=== PATIENT | male | born 1965 | race Caucasian/White ===

== ENCOUNTER 2019-01-02 06:29 | Inpatient (IN) ==
[2019-01-02] MEDS ORDERED: Sodium Chloride 0.9% 1,000 ML PRIMARY IV ONE (06:59)
[2019-01-02 07:08] LABS: Hematocrit [HCT] 41.5 % (42.0-52.0); Hemoglobin [HGB] 13.8 g/dL (14.0-18.0); MEAN CORPUSCULAR HEMOGLOBIN 27.9 PG (27-31); MEAN CORPUSCULAR HGB CONC 33.3 g/dL (33-37); MEAN CORPUSCULAR VOLUME 83.8 FL (80-90); RED BLOOD COUNT 4.95 10^6/uL (4.70-6.10)
[2019-01-02 07:18] LABS: BLOOD UREA NITROGEN 20 mg/dL (7-22); BUN/CREATININE RATIO 18.18 (6-20); SERUM ALBUMIN 4.1 g/dL (3.5-4.8)
[2019-01-02 07:38] LABS: PLATELET MORPHOLOGY COMMENT NORMAL MORPHOLOGY (NORM); RBC MORPHOLOGY COMMENT NORMAL MORPHOLOGY (NORM); WBC MORPHOLOGY COMMENT NORMAL MORPHOLOGY (NORM)
[2019-01-02 07:39] LABS: BAND NEUTROPHILS % 0 % (0-10); BASOPHILS % (MANUAL) 4 % (0-1); EOSINOPHILS % (MANUAL) 3 % (0-8); MONOCYTES % (MANUAL) 8 % (0-12); NEUTROPHILS % (MANUAL) 59 % (50-80)
--- NOTE | 2019-01-02 08:05 | PDOC ---
Lower Extremity Problem HPI - General Chief Complaint: Lower Extremity Problem/Injury Stated Complaint: LEFT FOOT RECHECK Date Seen by Provider: 01/02/19 Time Seen by Provider: 06:40 Source: POSITIVE: Patient, Old records Exam Limitations: POSITIVE: No limitations Nurse's Notes Reviewed & Considered: Yes - History of Present Illness Initial Comments: The patient is a 53-year-old male. Patient was seen in the emergency room [address] Fairchild with a diabetic foot ulcer, plantar and medial aspect of the left great toe. When seen in the emergency room at that time he was noted to have 2 diabetic foot ulcers of the left great toe, plantar and medial aspect. He had some redness and swelling of the left great toe. X-ray of the left great toe was taken and blood and wound cultures were taken. Patient was given a dose of intravenous antibiotics and was then discharged on Keflex, twice daily. He has a 10-12 year history of insulin-dependent type II diabetes mellitus. He has prominent diabetic neuropathy and states his sensation in his feet is a very reduced. No fevers or chills. No head chest or abdominal pain. Patient states that in the preceding 48 hours his redness and swelling has a descended from the great toe and now includes the dorsum of the left foot and the medial aspect of his left lower leg. No known fevers or chills. Patient takes Lantus 70 units daily as well as metformin 1000 mg twice daily. 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) Location at Time of Onset: REPORTS: Work Quality: REPORTS: Other (Patient denies any pain; sensation to his feet is markedly diminished due to diabetic neuropathy.) Modifying Factors: DENIES: Nothing Exacerbates, Walking, Movement, Rest, Ice, Nothing Relieves, Other Associated Symptoms: DENIES: Chest Pain, Shortness of Breath, Rapid Heart Rate, Fainting, Other Similar Symptoms Previously: No Recent Care Received: REPORTS: Recently Seen, Treated by MD (As above) Any Prior Injuries Related to Current Complaint?: No - Patient Home Medications Home Medications: Home Medications Gabapentin 900 mg PO TID 12/31/18 Insulin Glargine,Hum.rec.anlog [Lantus] 70 unit SQ DAILY 12/31/18 Lisinopril 5 mg PO DAILY 12/31/18 Ropinirole HCl [Requip] 1 mg PO DAILY 12/31/18 metFORMIN Tab [Glucophage Tab] 1,000 mg PO BID 12/31/18 Cephalexin [Keflex] 1,000 mg PO Q8H 01/02/19 - Patient Allergies Allergies/Adverse Reactions: Allergies Allergy/AdvReac Type Severity Reaction Status Date / Time Sulfa (Sulfonamide Allergy Hives Verified 01/02/19 06:31 Antibiotics) Past Medical History - heen HEENT History: Denies History Cardiovascular History: Hypertension Respiratory History: Denies History Gastrointestinal History: Denies History Genitourinary History: Denies History Endocrine History: Type 2 Diabetes (oral), Type 2 Diabetes (insulin) Musculoskeletal History: Back Pain Neurological History: Denies History Blood Disorders: Denies History Psychiatric History: Denies History Male Reproductive History: Denies History Cancer History: Denies History In Past Year Been Physically Harmed or Verbally Threatened: No History of MDRO: No Tobacco Use: Former Smoker In the Past 12 Months, Have Used or Abuse Any Substance: None Previous Surgical History: Yes Type / Date of Surgery: dixie tissue to lt eardrum, skin graft Anesthesia Reactions: No Malignant Hyperthermia: No Significant Family History: No pertinent family hx Past Medical History Reviewed: Reviewed - No Changes ROS - Limitations ROS Limitations: No Limitations Constitution: REPORTS: Denies Symptoms Cardiovascular: REPORTS: Denies Cardiac Symptoms Respiratory: REPORTS: Denies Resp Symptoms Neurological: REPORTS: Other (Markedly diminished sensation both feet due to diabetic neuropathy) Gastrointestinal: REPORTS: Denies GI Symptoms Endocrine: REPORTS: Denies Symptoms Musculoskeletal: REPORTS: Lower Extremity Swelling (Diabetic foot ulcers with associated cellulitis as above; see diagram) Genitourinary: REPORTS: Denies Symptoms Eyes: REPORTS: Denies Symptoms ENT: REPORTS: Denies Symptoms Skin: REPORTS: Other (Diabetic foot ulcer left great toe 2 as above with associated cellulitis; see diagram hand physical examination) Lympathic: REPORTS: Denies Lympathic Symptoms Immunologic: POSITIVE: Denies Symptoms Psychiatric: POSITIVE: Denies Psych Symptoms Lower Ext Problem Exam - General Appearance General Appearance: POSITIVE: Alert, Cooperative, No Acute Distress, No Evidence of Trauma - Extremities Lower Extremity: POSITIVE: Non-Tender, Foot (Diabetic foot ulcers 2 over the medial plantar surface of the left great toe with associated cellulitis of the left great toe extending to the dorsum of the foot and medial aspect of the left lower leg), Swelling, Pedal Edema Joint Exam: POSITIVE: Joints Normal, Normal ROM, Normal Gait, Normal Weight Bearing Vascular: POSITIVE: No Vascular Compromise, Full Pulses, Equal Pulses - Neuro / Psych Neuro/Psych: POSITIVE: Motor Normal, Oriented to Person, Oriented to Place, Oriented to Time, 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 N EGATIVE: Sensation Normal (Prominently decreased sensation both feet) - Neck / Back / Pelvis Back / Neck: POSITIVE: Normal Inspection, Normal ROM - Skin Skin: POSITIVE: Warmth, Erythema (Cellulitis left great toe, medial and dorsal aspect of the left foot and medial aspect of the left lower leg; diabetic foot ulcers 2 plantar and medial surface of the left great toe.) - HEENT HEENT: POSITIVE: Head Inspection Nml, Eyes Inspection Nml, Ears Inspection Nml, Nose Inspection Nml, Oral/Dental Inspect. Nml, Pharynx Inspect. Nml, PERRL, EOMI - Respiratory / CVS Respiratory / CVS: POSITIVE: No Respiratory Distress, Breath Sounds Normal, Regular Rate/Rhythm, Heart Sounds Normal Peripheral Pulses: Radial (R): 2+, Radial (L): 2+, Dorsalis-pedis (R): 1+, Dorsalis-pedis (L): 1+ - Abdomen Abdomen: Soft: (All Quadrants), Normal Bowel Sounds: (All Quadrants), Denies Tenderness: (All Quadrants), No Splenomegaly: (All Quadrants), No Hepatomegaly: (All Quadrants), No Guarding: (All Quadrants), No Rebound: (All Quadrants), No Palpable Pulse: (All Quadrants), No Palpabale Mass: (All Quadrants), No Distention: (All Quadrants), No Rigidity: (All Quadrants) Images - Lower Extremities Feet: 1 - Diabetic foot ulcer 2 - Diabetic foot ulcer 3 - Cellulitis 4 - Cellulitis Lower Ext Problem Progress - Results Reviewed by me Lab Results Reviewed by Me: Yes CBC and BMP: 01/02/19 07:05 01/02/19 07:05 Lab Results:: Laboratory Results 01/02/19 01/02/19 07:05 07:05 WBC 7.77 RBC 4.95 Hgb 13.8 L Hct 41.5 L MCV 83.8 MCH 27.9 MCHC 33.3 RDW Std Deviation 43.4 RDW Coeff of Arlin 14.4 Plt Count 226 MPV 9.0 Neutrophils % (Manual) 59 Band Neutrophils % 0 Lymphocytes % (Manual) 26 Monocytes % (Manual) 8 Eosinophils % (Manual) 3 Basophils % (Manual) 4 H Metamyelocytes % Not Reportable Myelocytes % Not Reportable Promyelocytes % Not Reportable Blast Cells Not Reportable WBC Morphology Comment Normal morphology Plt Morphology Comment Normal morphology RBC Morph Comment Normal morphology Sodium 140 Potassium 4.4 Chloride 101 Carbon Dioxide 26 Anion Gap 13 BUN 20 Creatinine 1.1 Estimated GFR > 60 BUN/Creatinine Ratio 18.18 Glucose 173 H Calculated Osmolality 296.0 H Calcium 9.1 Total Bilirubin 0.5 AST 35 ALT 32 Alkaline Phosphatase 88 Total Protein 7.5 Albumin 4.1 Globulin 3.4 Albumin/Globulin Ratio 1.20 L - Patient's Progress Pain Medication Addressed: POSITIVE: Not Applicable School/Work Release Addressed: POSITIVE: Not Applicable Re-Examine Time: 08:00 Re-Examine Comment: Options of treatment discussed with patient. Patient's condition is worsening on outpatient treatment. Recommended admission. Case discussed with hospitalist at 8 AM. Patient admitted for further evaluation and treatment of his diabetic foot ulcers with associated cellulitis. Status: POSITIVE: Unchanged, Re-Examined - Consult Consulting MD will see pt:: POSITIVE: [facility] [place] Admit Counseled: POSITIVE: Patient, RE: Lab Results, RE: DX, RE: Need for F/U Patient Care Time - Estimated PCT Patient Care Time (In Minutes): 45 Vital Signs - Recent Vital Signs Vital Signs: Vital Signs (Last 8 hours) Temp Pulse Resp BP Pulse Ox 01/02/19 06:39 96.3 F L 87 18 139/92 95 - VS Reviewed Vital Signs Reviewed: Yes Discharge Clinical Impression: Diabetic foot ulcers Discharge Disposition: Discharged to Home Condition: Good Follow Up With: NONE,NONE [Primary Care Provider] - Date Decision to Admit to Inpatient: 01/02/19 Time Decision to Admit to Inpatient: 08:00
[2019-01-02] MEDS ORDERED: DOCUSATE 100 MG CAPSULE PO PRN (08:35)
[2019-01-02] MEDS ORDERED: ONDANSETRON 4 MG/2 ML VIAL IVP PRN (08:35)
[2019-01-02] MEDS ORDERED: LIDOCAINE W/ SODIUM BICARB 0.5 ML SYR SUBD PRN (08:35)
[2019-01-02] MEDS ORDERED: CALCIUM CARBONATE 500 MG (TUMS) CHEWABLE TABLET PO PRN (08:35)
[2019-01-02] MEDS ORDERED: Ropinirole Tab 1 MG TAB PO SCH (09:15)
--- NOTE | 2019-01-02 09:15 | PDOC ---
HPI - History of Present Illness History of Present Illness: This very nice 53-year-old gentleman with history of type II diabetes and severe neuropathy was seen in the ER 2 days ago was given 1 dose of Invanz and sent h ome on Keflex for diabetic ulcer on his toe had some redness of the left great toe the patient states that the redness has ascended to the dorsum was of his foot and his left lower leg Dr. Carrera admitted the patient for cellulitis Past Medical History Medical History: Diabetes, neuropathy Tobacco Use: Former Smoker In the Past 12 Months, Have Used or Abuse Any of the Following Substance: None Medication / Allergies Home Medications: Home Medications Medication Instructions Recorded Confirmed Type Gabapentin 900 mg PO TID 12/31/18 01/02/19 History Insulin Glargine,Hum.rec.anlog 70 unit SQ DAILY 12/31/18 01/02/19 History [Lantus] Lisinopril 5 mg PO DAILY 12/31/18 01/02/19 History Ropinirole HCl [Requip] 1 mg PO DAILY 12/31/18 01/02/19 History metFORMIN Tab [Glucophage Tab] 1,000 mg PO BID 12/31/18 01/02/19 History Cephalexin [Keflex] 1,000 mg PO Q8H 01/02/19 01/02/19 History Allergies/Adverse Reactions: Allergies Allergy/AdvReac Type Severity Reaction Status Date / Time Sulfa (Sulfonamide Allergy Hives Verified 01/02/19 06:31 Antibiotics) Review of Systems - Review of Systems All Systems: Reviewed & No Additional Complaints Except as Stated - Cardiovascular Cardiovascular: DENIES: Negative System Review, Chest Pain, Edema, Syncope, Palpitations, Orthopnea, Paroxysmal Nocturnal Dyspnea, Other, See HPI - Gastrointestinal Gastrointestinal / Abdominal: DENIES: Negative System Review, Nausea, Vomiting, Diarrhea, Constipation, Abdominal Pain, Bloody Stool, Poor Appetite, Heartburn, Regurgitation, Bloating, Lactose Intolerance, Melena, Bright Red Blood per Rectum, Other, See HPI Exam - Vitals Vital Signs: Vital Signs Temperature 97.5 F Temperature Source Temporal Artery Scan Pulse Rate [Pulse Oximeter 75 Right] Pulse Rate 76 Respiratory Rate 18 Blood Pressure [Left Arm] 139/85 Blood Pressure 113/66 Pulse Ox 96 Oxygen Flow Rate 96 Oxygen Delivery Method Room Air Height 6 ft Weight 306 lb 3.2 oz - General General Appearance: No Acute Distress, Cooperative, Obese - Respiratory Respiratory Exam: POSITIVE: Clear to Auscultation - Bilaterally, Breathing Non Labored, Normal To Percussion, Normal to Percussion and Palpation - Cardiovascular Cardiovascular Exam: POSITIVE: RRR, No Murmur, No Clicks, No Gallops, No Rubs, PMI Non-Displaced - GI/Abdominal GI/Abdominal Exam: POSITIVE: Normal Bowel Sounds, Non Tender, Non Distended, Soft, No Masses, No Hepatomegaly, No Splenomegaly, No Organomegaly - Extremities Additional Extremities Exam Details: Left lower extremity big toe 2 ulcers half centimeter both redness of the left big toe and dorsum of the foot swelling upper thigh - Neurological Neurological Exam: POSITIVE: Alert, No Facial Droop, Speech Intact / Clear, Moves All Extremities Equally - Integumentary Integumentary Exam: POSITIVE: Normal Color, Warm, Dry, Intact Results - Labs CBC and BMP: 01/02/19 07:05 01/02/19 07:05 Assessment and Plan - Patient Problems (1) Diabetic foot ulcers Current Visit: Yes Status: Acute Comment: Left lower extremity continue Invanz will order MRI of the foot looking for osteomyelitis also order a sedimentation rate, CRP, ultrasound rule out DVT Code(s): E11.621 - Type 2 diabetes mellitus with foot ulcer; L97.509 - Non- pressure chronic ulcer of other part of unspecified foot with unspecified sev erity (2) Diabetes Current Visit: Yes Status: Acute Comment: Continue home insulin Code(s): E11.9 - Type 2 diabetes mellitus without complications (3) Diabetic infection of left foot Current Visit: No Status: Acute Code(s): E11.628 - Type 2 diabetes mellitus with other skin complications; L08.9 - Local infection of the skin and subcutaneous tissue, unspecified
[2019-01-02] MEDS: Ertapenem Inj 1 GM in Sodium Chloride 0.9% 100 ML IV SCH (09:28)
[2019-01-02] MEDS: GABAPENTIN 300 MG CAPSULE PO SCH ×3 (09:36→21:29)
[2019-01-02] MEDS: LISINOPRIL 5 MG TABLET PO SCH (09:36)
[2019-01-02] MEDS: metFORMIN 500 MG TABLET PO SCH ×2 (09:37→21:30)
[2019-01-02] MEDS: Insulin Glargine SoloStar Inj 100 UNIT/ML INSULN.PEN SUBCUT SCH (09:37)
--- NOTE | 2019-01-02 12:32 | DI ---
MRI Lower Extremity WO Brittney,01/02/2019 10:15 AM: Clinical History: Left great toe ulcer swelling. Previous Exam: None at this facility. Findings: Multiplanar MR images are obtained through the left foot both before and after the intravenous admini stration of gadolinium contrast. There is mild edema involving the dorsum of the left foot. There are some degenerative changes involving the left first metatarsophalangeal joint. There is no marrow edema identified. The major vascular flow voids are unremarkable. Signal within the musculature is unremarkable. The fl exor and extensor tendons are unremarkable. Impression: 1. No evidence of osteomyelitis. 2. Mild diffuse edema. This may represent cellulitis.
--- NOTE | 2019-01-02 16:47 | DI ---
[facility] 10[facility]16 AM: Clinical History: Left lower extremity swelling. Previous Exam: None at this facility. Findings: Multiple grayscale and color Doppler sonographic images are obtained through the deep veins of the le ft lower extremity. There is no cystic area. There is complete coaptation upon graded compression throughout. There is no echogenic thrombus. There is no respiratory variation nor augmentation. Impression: No evidence of deep venous thrombosis.
[2019-01-03] MEDS: GABAPENTIN 300 MG CAPSULE PO SCH ×3 (08:09→20:30)
[2019-01-03] MEDS: ACETAMINOPHEN 325 MG TABLET PO PRN (08:09)
[2019-01-03] MEDS: LISINOPRIL 5 MG TABLET PO SCH (08:09)
[2019-01-03] MEDS: metFORMIN 500 MG TABLET PO SCH ×2 (08:10→20:30)
[2019-01-03] MEDS: Ertapenem Inj 1 GM in Sodium Chloride 0.9% 100 ML IV SCH (08:12)
[2019-01-03] MEDS: Insulin Glargine SoloStar Inj 100 UNIT/ML INSULN.PEN SUBCUT SCH (08:18)
--- NOTE | 2019-01-03 09:42 | PTI REPORT ---
Thank you for the referral of Javad Benson. He was seen on 01/02/19 for an inpatient evaluation secondary to a diabetic ulcer on the left great toe. SUBJECTIVE: The patient is a 53-year-old male who states that on December 25 he found two small wounds on the dorsal side of his left great toe. The patient states that he does have a diagnosis of Diabetes which he has had for 10+ years and has very limited feeling in his left foot. The patient denies any previous issue with diabetic wounds and denies any amputation secondary to diabetes. The patient states that he works in the [employer] field and he had just gotten off shift this morning when he came to the hospital. He states that he did come yesterday and was placed on some antibiotics. He finished off his shift and has now been hospitalized with antibiotics and further testing to rule out a blood clot and osteomyelitis of his left foot. The patient states that over the past few days his toe and leg have swelled up more and increased in redness. The patient states that he hasn't done much at home for his wounds besides try some Peroxide and Neosporin. The patient states that otherwise he is relatively healthy. He does have uncontrolled Diabetes as sometimes he states he is not always able to afford the medication. PAST MEDICAL HISTORY: Past medical history can be found in the patient's medical record. OBJECTIVE FINDINGS: The patient was alert and oriented to setting upon PT arrival. The patient demonstrates two small wounds. One measures 0.8 centimeters x 1 centimeter and the other measures 1.2 centimeters x 1 centimeter. Both are superficial diabetic wounds. No drainage is present. There is redness of the great toe and swelling of the great toe and into the foot and lower extremity. The wounds were cleansed with wound cleanser. Both wounds demonstrate a wound bed that is red in color. PolyMem was placed over the wound beds and secured with Kinesio tape to allow for any additional swelling that may occur and the patient's comfort. After the wounds were dressed, the patient stated he was doing well and does not feel like he needs to be further evaluated for PT orders for generalized weakness as he is able to be mobile on his own and ambulate. He is hoping that he gets out of the hospital in time to start his next shift on . ASSESSMENT: The patient has fair rehab potential secondary to his diagnosis of Diabetes. Problem List: Two wounds on the dorsal side of the great left toe Short-Term Goals: To be met by discharge from inpatient: We will continue with wound care per wound presentation. Patient will be instructed on proper wound care. Long-Term Goals: To be met following discharge from inpatient: Patient may be seen by outpatient physical therapy for continued wound care if deemed necessary upon time of discharge. TREATMENT PLAN: Patient will be seen one time per day during the week and one time per day over the weekend as an inpatient for wound care per wound presentation. INITIAL TREATMENT: Treatment today consisted of the initial evaluation activities only. PAULINE
--- NOTE | 2019-01-03 11:45 | OTI REPORT ---
Thank you for the referral of Javad Benson. He was seen on 01/02/19 for an occupational therapy inpatient evaluation secondary to a diabetic wound on his right toe. SUBJECTIVE: The patient is a 53-year-old male who is being seen secondary to having Diabetes and a diabetic wound on his right toe. The patient works in the [employer] field and did not notice that his foot had a wound on it. He does not feel that he is very weak. Prior to admission he was independent with all of his ADLs and functional transfers. 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 PAST MEDICAL HISTORY: Past medical history can be found in the patient's medical record. OBJECTIVE FINDINGS: Range of motion: The patient has within functional limits for active range of motion of bilateral upper extremities. Strength: Strength bilaterally was 4+ to 5/5 for flexion/abduction, elbow flexion/extension, and wrist flexion/extension. Activities of daily living: The patient was independent in dressing himself without loss of balance. Transfers: The patient is doing well with his functional transfers. ASSESSMENT: The patient does not necessarily want to participate in strengthening activities. His overall generalized strength is good. He did not want to learn theraband exercises while he is in the hospital. Transfers are within normal limits and the patient is able to dress self. Occupational Therapy Goals: To be met following discharge from inpatient: Patient will return home, demonstrating independence and safety with all ADLs and functional transfers. TREATMENT PLAN: Patient does not demonstrate a need to continue with skilled OT services. The patient will continue with PT for wound management and care. INITIAL TREATMENT: Treatment today consisted of the initial evaluation activities only. PAULINE
--- NOTE | 2019-01-03 12:04 | PDOC(PROG) ---
Interval History: Left lower extremity looks much better less redness on the dorsum of the foot less swelling. Objective : Data - Labs CBC and BMP: 01/02/19 07:05 01/02/19 07:05 Objective : Exam - General General Appearance: Cooperative - Respiratory Respiratory Exam: Clear to Auscultation - Bilaterally, Breathing Non Labored, Normal To Percussion, Normal to Percussion and Palpation - Cardiovascular Cardiovascular Exam: RRR, No Murmur, No Clicks, No Gallops, No Rubs, PMI Non- Displaced - GI/Abdominal GI/Abdominal Exam: Normal Bowel Sounds, Non Tender, Non Distended, Soft, No Masses, No Hepatomegaly, No Splenomegaly, No Organomegaly - Extremities Additional Extremities Exam Details: Less swelling left lower extremity less redness improved Assessment and Plan - Patient Problems (1) Diabetic foot ulcers Current Visit: Yes Status: Acute Comment: Diabetic foot ulcer swelling and redness is improving no DVT as per ultrasound no ostial respiratory MRI continue IV Invanz had a long discussion with the patient on the importance of keeping weight off these ulcers in order to heal I also discussed with physical therapy to may be having build a bruit so he can stay off of it 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
--- NOTE | 2019-01-03 16:04 | PT.PROG ---
Progress Note Progress Note: S. Patient states he feels that his foot is more swollen this afternoon compared to this morning. O. Patient's wounds were cleaned with wound cleanser and redressed with polymem and secured with K-tape. Patient was left in his chair. A. the wound presents with redness and swelling, no drainage noted at this time. Patient would continue to benefit from wound care to increase healing at this time. P. Continue POC.
[2019-01-03] MEDS ORDERED: Ropinirole Tab 1 MG TAB PO SCH (21:00)
[2019-01-04 06:44] VITALS: BP 129/74; RESP 16; TEMP 98; O2SAT 90
[2019-01-04] MEDS: metFORMIN 500 MG TABLET PO SCH (09:05)
[2019-01-04] MEDS: GABAPENTIN 300 MG CAPSULE PO SCH (09:05)
[2019-01-04] MEDS: LISINOPRIL 5 MG TABLET PO SCH (09:05)
[2019-01-04] MEDS: Ertapenem Inj 1 GM in Sodium Chloride 0.9% 100 ML IV SCH (09:05)
[2019-01-04] MEDS: ACETAMINOPHEN 325 MG TABLET PO PRN (09:11)
[2019-01-04] MEDS: Insulin Glargine SoloStar Inj 100 UNIT/ML INSULN.PEN SUBCUT SCH (09:12)
--- NOTE | 2019-01-04 09:56 | PDOC(PROG) ---
Interval History: Left lower extremity swelling still present but a little improved redness is a little improved patient is still needs IV antibiotics Objective : Data - Labs CBC and BMP: 01/02/19 07:05 01/02/19 07:05 Objective : Exam - General General Appearance: Cooperative - Extremities Additional Extremities Exam Details: (Total swelling is decreased but still present redness is decreased distal little present we are making progress Assessment and Plan - Patient Problems (1) Diabetic foot ulcers Current Visit: Yes Status: Acute Comment: Continue IV antibiotics we have made some progress with less swelling and redness patient needs to be off these the toe for healing. Continue wound dressing continue IV antibiotics for now patient understands and agrees he will need a total of 10 days total of antibiotics by the end of the week we will decide if he can be sent home on oral antibiotics or if he still needs IV Code(s): E11.621 - Type 2 diabetes mellitus with foot ulcer; L97.509 - Non- pressure chronic ulcer of other part of unspecified foot with unspecified severity (2) Diabetes Current Visit: Yes Status: Acute Code(s): E11.9 - Type 2 diabetes mellitus without complications (3) Diabetic infection of left foot Current Visit: No Status: Acute Code(s): E11.628 - Type 2 diabetes mellitus with other skin complications; L08.9 - Local infection of the skin and subcutaneous tissue, unspecified
[2019-01-04] MEDS ORDERED: CEPHALEXIN 500 MG CAPSULE PO SCH (11:00)
--- NOTE | 2019-01-04 11:05 | DCSUMMARY ---
Hospitalization Summary Hospital Course: Final Discharge Diagnosis: Current Visit Problems Problem Status Onset Code Diabetic foot ulcers Acute E11.621, L97.509 Diabetes Acute E11.9 Diagnostic Data, Laboratory Data, and Procedures of Signifigance: CBC and BMP 01/02/19 07:05 01/02/19 07:05 History and Physical pertinent to Admission: Course of Hospitalization: This very nice 53-year-old gentleman who presented to the ER with the left lower extremity cellulitis and diabetic foot ulcers. He was started on IV Invanz swelling and redness improved. No white count no fevers patient is back to his normal self wound care has been taking care of his small non-D the left big toe ulcers. Ultrasound of the leg revealed no DVT also MRI of the foot no osteo. Discussed the case with Dr. Andre Jackson is reasonable to discharge the patient home on high-dose Keflex 1000 mg by mouth tid a day ,prescription given. I was struck to the patient to stay off his foot we had a boot made for him by physical therapy he will continue wound care in [place] as well. I did instruct him that if the has increased swelling or redness to go to the emergency room On the date of discharge, the patient was examined: Gen.: No acute distress, alert, nontoxic Heart: Regular rate and rhythm, no murmurs, clicks, gallops, or rubs Lungs: Clear to auscultation bilaterally, breathing is nonlabored Abdomen/GI: Normal tones on auscultation, soft, nontender, nondistended Musculoskeletal/extremities: No clubbing, cyanosis, or edema left big toe is swollen and is almost resolved no redness also is a do not look infected Vitals reviewed and are listed below Vital Signs (24 hrs) 01/03/19 11:19 01/03/19 16:45 01/03/19 19:00 Temperature 98.2 F 97.4 F Pulse Rate Pulse Oximeter Right 84 78 73 Respiratory Rate 18 20 18 Blood Pressure Left Arm 118/79 Blood Pressure Right Arm 128/79 Pulse Ox 92 93 01/03/19 20:00 01/04/19 01:00 01/04/19 04:38 Temperature 97.0 F 97.3 F 97.9 F Pulse Rate Pulse Oximeter Right 73 90 92 Respiratory Rate 18 18 20 Blood Pressure Left Arm Blood Pressure Right Arm 127/83 123/79 137/88 Pulse Ox 94 92 92 01/04/19 06:36 01/04/19 07:00 Temperature 98 F Pulse Rate Pulse Oximeter Right 89 Respiratory Rate 16 16 Blood Pressure Left Arm Blood Pressure [Right Ar] 129/74 Pulse Ox 90 Assessment and Plan: 1. As per discharge assessments above 2. Disposition: Home 3. Condition on discharge, stable and improved. 4. Diet: regular diet 5. Activities: resume normal activities 6. Follow-Up: 1. [PC] 2. Follow-up with Dr. Andre Jackson in [place] factious disease 7. Medications at the Time of Discharge: 8. Time, care, counseling and coordination of care for this discharge is greater than 30 minutes. Exam - Vitals Vital Signs: Vital Signs Temperature 98 F Temperature Source Temporal Artery Scan Pulse Rate [Pulse Oximeter 89 Right] Pulse Rate 76 Respiratory Rate 16 Blood Pressure [Right Arm] 129/74 Blood Pressure [Left Arm] 118/79 Blood Pressure 113/66 Pulse Ox 90 Oxygen Flow Rate 96 Oxygen Delivery Method Room Air Height 6 ft Weight 306 lb 6.4 oz Patient Problems - Patient Problem List (1) Diabetic foot ulcers Current Visit: Yes Status: Acute Code(s): E11.621 - Type 2 diabetes mellitus with foot ulcer; L97.509 - Non-pressure chronic ulcer of other part of unspecified foot with unspecified severity Category: Medical (2) Diabetes Current Visit: Yes Status: Acute Code(s): E11.9 - Type 2 diabetes mellitus without complications Category: Medical (3) Diabetic infection of left foot Current Visit: No Status: Acute Code(s): E11.628 - Type 2 diabetes mellitus with other skin complications; L08.9 - Local infection of the skin and subcutaneous tissue, unspecified Category: Medical
--- NOTE | 2019-01-04 11:51 | PT.PROG ---
Progress Note Progress Note: S. Patient states he feels that his foot looks better than before. O. Patient's wounds were cleaned with wound cleanser and redressed with polymem and secured with K-tape. Patient was fitted for a CAM walker and demonstrated proper use and care of the boot. Patient was left in his chair. A. the wound presents with slight redness and swelling, no drainage noted at this time. Patient would continue to benefit from wound care to increase healing at this time. P. Continue POC.
== END 2019-01-04 13:05 | disposition home or self-care (01) | DRG 638 ==
LOC: ER 06:29 → MED/SURG 08:22
PROVIDERS: ADMIT Internal Medicine; ATTEND Internal Medicine